=== PATIENT | male | born 2005 ===

== ENCOUNTER 2024-02-10 05:20 | Inpatient (IN) | payer OTHER ==
[2024-02-05 09:29] LABS: URINE APPEARANCE Clear; URINE BILIRRUBIN Negative (NEGATIVE); URINE BLOOD Negative; URINE COLOR Yellow; URINE GLUCOSE Negative (NEGATIVE); URINE KETONE Negative (NEGATIVE); URINE LEUKOCYTE Negative; URINE NITRATE Negative; URINE PROTEIN Negative (NEGATIVE); URINE UROBILINOGEN 0.2 E.U./dl
[2024-02-05 09:31] LABS: URINE BACTERIA 16.3 uL (0.0-1933); URINE WBC 1.8 uL (0.0-23.2)
[2024-02-05 09:34] LABS: HEMATOCRIT 41.3 % (39.0-48.0); MEAN CELL VOLUME 86.7 fL (80.0-100.00); MEAN CORPUSCULAR HEMOGLOBIN 29.4 pg (27.00-32.0); MEAN CORPUSCULAR HGB CONC 33.9 g/dl (32.0-36.0); PLATELET COUNT 213 K/uL (150-450); RED BLOOD COUNT 4.76 M/uL (4.00-6.00); RED CELL DISTRIBUTION WIDTH 13.3 % (11.5-14.5)
[2024-02-05 09:38] LABS: URINE EPITHELIAL CELLS 0.3 uL (0.0-38.8); URINE RBC 0.4 uL (0.0-20.8)
[2024-02-05 10:21] LABS: INR 1.07; PARTIAL THROMBOPLASTIN TIME 28.1 SECONDS (22.0-34.0); PROTHROMBIN TIME 11.6 SECONDS (9.0-11.5)
[2024-02-05 10:25] LABS: CALCIUM 9.6 mg/dL (8.5-10.1); CREATININE SERUM 0.89 mg/dL (0.70-1.30); GFR 110.12; POTASSIUM 4.64 mEq/L (3.5-5.1)
[~2024-02-10] VITALS: Ht 172.7 cm; Wt 70.9 kg
[2024-02-10] MEDS ORDERED: ENOXAPARIN SODIUM 40 MG/0.4 ML SYRINGE SUBCUTANEO ONE (14:48)
[2024-02-10] MEDS ORDERED: CEFTRIAXONE SODIUM 2,000 MG VIAL ONE (14:49)
[2024-02-10] MEDS ORDERED: BUPIVACAINE HCL/Mpf 0.5% 10ML VIAL ONE ×2 (17:36→17:46)
[2024-02-10] MEDS ORDERED: POLY119PG PO (19:17)
[2024-02-10] MEDS ORDERED: PERCOCET 5-3251 EACH PO (19:17)
[2024-02-10] MEDS ORDERED: NEURONTIN300 MG PO (19:17)
[2024-02-10] MEDS ORDERED: CELEBREX200MG PO (19:17)
[2024-02-10] MEDS ORDERED: PROPOFOL 10,000 MCG/ML VIAL IV ONE (20:10)
[2024-02-10] MEDS ORDERED: PROPOFOL 100 ML IV SCH ×2 (20:20→21:30)
[2024-02-10] MEDS ORDERED: POTASSIUM CHLORIDE/D5-0.45NACL 1,000 ML IV ONE (21:45)
[2024-02-10] MEDS ORDERED: POTASSIUM CHLORIDE/D5-0.45NACL 1,000 ML IV SCH (22:15)
[2024-02-10 22:36] VITALS: BP 114/83; O2SAT 100
[2024-02-10 23:24] VITALS: BP 116/79; O2SAT 100
[2024-02-10 23:47] LABS: ABG PH 7.351 (7.35-7.45)
[2024-02-10 23:48] LABS: ABG PO2 519.8 mmHg (80-100); BASE EXCESS -0.6 mmol/l; BICARBONATE 25.4 mmol/l (23-25); Tco2 26.9 mmol/l
[2024-02-10 23:49] LABS: o2 100 %
[2024-02-10 23:50] LABS: allen test SATISFACTORY; puncture site RADIAL LEFT
[2024-02-11] VITALS (9 sets, daily range): BP systolic 125–156; BP diastolic 66–100; O2SAT 100
[2024-02-11] MEDS ORDERED: CHLORHEXIDINE GLUCONATE 15ML BRUSH KIT MM SCH ×2 (01:00→09:00)
[2024-02-11] MEDS ORDERED: PIPERACILLIN/TAZOBACTAM SODIUM 3.375 GM VIAL IV SCH (01:00)
[2024-02-11 07:04] LABS: HEMATOCRIT 43.4 % (39.0-48.0); HEMOGLOBIN 14.6 g/dL (13-16.00); MEAN CELL VOLUME 87.9 fL (80.0-100.00); MEAN CORPUSCULAR HEMOGLOBIN 29.5 pg (27.00-32.0); MEAN CORPUSCULAR HGB CONC 33.5 g/dl (32.0-36.0); PLATELET COUNT 181 K/uL (150-450); RED BLOOD COUNT 4.94 M/uL (4.00-6.00); RED CELL DISTRIBUTION WIDTH 12.8 % (11.5-14.5)
[2024-02-11 07:12] LABS: INR 1.17; PARTIAL THROMBOPLASTIN TIME 26.6 SECONDS (22.0-34.0); PROTHROMBIN TIME 12.6 SECONDS (9.0-11.5)
[2024-02-11 07:19] LABS: ALBUMIN 3.7 gm/dL (3.4-5.0); BILIRUBIN TOTAL 1.58 mg/dL (0.3-1.2); CALCIUM 9.1 mg/dL (8.5-10.1); CREATININE SERUM 1.14 mg/dL (0.70-1.30); GFR 82.75; GLOBULINA 3.3 G/DL (2.4-3.5); MAGNESIUM 1.9 mg/dL (1.8-2.4); POTASSIUM 4.2 mEq/L (3.5-5.1)
[2024-02-11] MEDS ORDERED: FAMOTIDINE/PF 20 MG/2 ML VIAL IV SCH (09:00)
[2024-02-11] MEDS ORDERED: POLYVINYL ALCOHOL 15 ML DROPS OP SCH (09:00)
[2024-02-11] MEDS ORDERED: CARBOXYMETHYLCELLULOSE SODIUM 1 EACH DROPERETTE OP SCH (09:00)
[2024-02-11] MEDS ORDERED: ONDANSETRON HCL 2 MG/ML VIAL IV PRN (09:15)
[2024-02-11] MEDS ORDERED: ALBUTEROL SULFATE 3 ML/2.5 MG AMPUL.NEB IH ONE (09:46)
[2024-02-11 10:21] LABS: ABG PH 7.391 (7.35-7.45); ABG pCO2 44.2 mmHg (35-45); BASE EXCESS 0.9 mmol/l; BICARBONATE 26.2 mmol/l (23-25); SaO2 97.3 %; Tco2 27.6 mmol/l
[2024-02-11 10:22] LABS: allen test SATISFACTORY; o2 35 %; puncture site RADIAL RIGHT
[2024-02-11 10:24] LABS: ABG PH 7.336 (7.35-7.45); ABG PO2 129.3 mmHg (80-100); ABG pCO2 48.7 mmHg (35-45); BASE EXCESS -0.9 mmol/l; BICARBONATE 25.5 mmol/l (23-25); SaO2 98.6 %
[2024-02-11 10:25] LABS: allen test SATISFACTORY; o2 35 %; puncture site RADIAL RIGHT
[2024-02-11 11:18] LABS: ABG PH 7.391 (7.35-7.45); ABG PO2 155.8 mmHg (80-100); ABG pCO2 41.1 mmHg (35-45); BASE EXCESS -0.6 mmol/l; BICARBONATE 24.4 mmol/l (23-25); SaO2 99.3 %; Tco2 25.6 mmol/l; allen test SATISFACTORY; o2 36 %; puncture site RADIAL RIGHT
[2024-02-11] MEDS ORDERED: KETOROLAC TROMETHAMINE 15 MG VIAL IV ONE (20:15)
[2024-02-11] MEDS ORDERED: KETOROLAC TROMETHAMINE 30 MG VIAL ONE (21:19)
[2024-02-12 07:08] VITALS: BP 130/60; O2SAT 100
[2024-02-12 10:06] LABS: ABG PH 7.401 (7.35-7.45); ABG PO2 163.2 mmHg (80-100); ABG pCO2 41.7 mmHg (35-45); BASE EXCESS 0.4 mmol/l; BICARBONATE 25.3 mmol/l (23-25); SaO2 99.4 %; Tco2 26.6 mmol/l
[2024-02-12 10:09] LABS: allen test SATISFACTORY; o2 28 %; puncture site RADIAL LEFT
[2024-02-12 11:13] VITALS: BP 119/88; O2SAT 99
[2024-02-12 12:04] VITALS: BP 119/88
[2024-02-12] MEDS ORDERED: CELECOXIB 200 MG CAPSULE PO SCH (12:50)
[2024-02-12] MEDS ORDERED: MENTHOL/CETYLPYRD CL 1 LOZENGE MM PRN (13:00)
[2024-02-12 17:50] VITALS: BP 122/73; O2SAT 96
[2024-02-12 21:47] VITALS: BP 120/78; O2SAT 96
[2024-02-13 00:08] VITALS: BP 117/78; O2SAT 96
[2024-02-13 04:00] VITALS: BP 121/81; O2SAT 97
[2024-02-13 08:00] VITALS: BP 118/65; O2SAT 96
[2024-02-13] MEDS ORDERED: NAPROXEN500 MG PO (09:45)
[2024-02-13] MEDS ORDERED: SODIUM CHLORIDE 0.45 % 1,000 ML IV SCH (11:45)
== END 2024-02-13 09:55 | disposition home or self-care (01) | DRG 351 ==
LOC: CIR.AMB 05:20 → O/R 20:07 → ICU 20:07 → PED 02-12 11:10
PROVIDERS: Anesthesiology Pain Medicine; Emergency Medicine; Emergency Medicine Pediatric Emergency Medicine; Internal Medicine; ADMIT Surgery; ATTEND Surgery
PROC: 0YQ54ZZ Repair Right Inguinal Region, Percutaneous Endoscopic Approach (ICD-10-PCS; principal; 2024-02-10 17:00)
DX: K40.90 Unilateral inguinal hernia, without obstruction or gangrene, not specified as recurrent (principal); J81.1 Chronic pulmonary edema